=== PATIENT | female | born 1985 | race Hispanic/Latino ===

== ENCOUNTER 2017-08-30 08:56 | Inpatient (IN) | payer OTHER ==
[2017-08-30 09:12] VITALS: BMI 29.2
[2017-08-30] MEDS: Lactated Ringer's 1,000 ML IV SCH ×2 (10:25→11:27)
[2017-08-30 10:37] VITALS: RESP 20
[2017-08-30 11:07] LABS: BASO % 0.2 % (0.0-2.0); EOS % 0.3 % (0.0-4.0); HEMOGLOBIN 13.2 g/dL (12.0-16.0); LYMPH # 1.6 K/uL (1.0-4.3); LYMPH % 17.8 % (20.0-40.0); MEAN CELL VOLUME 92.8 fl (81.0-99.0); MEAN CORPUSCULAR HEMOGLOBIN 31.7 pg (27.0-31.0); MEAN CORPUSCULAR HGB CONC 34.1 g/dL (33.0-37.0); MEAN PLATELET VOLUME 10.1 fl (7.2-11.7); MONO # 0.7 K/uL (0.0-0.8); MONO % 7.4 % (0.0-10.0); NEUT # 6.8 K/uL (1.8-7.0); NEUT % 74.3 % (50.0-75.0); NRBC % 0.1 % (0.0-0.0); RBC 4.18 Mil/uL (3.80-5.20); RED CELL DISTRIBUTION WIDTH 13.3 % (11.5-14.5); WHITE BLOOD COUNT 9.2 K/uL (4.8-10.8)
--- NOTE | 2017-08-30 11:16 | OBHP ---
Datetime: 08/30/2017 10:54 IP Adm Impression: Postterm, intrauterine IP Admit Plan: Admit to unit; Initiate labor protocol Admit Comment, IP Provider: 31 yo G1 at 41 weeks w/ decreased movment and painful ctxns, in ea rly labor Pt admitted to L_D. IVF started. GBS negative. FHT reassuring and reactive. Will start piocin if ctxns become less frequest than every 3 minutes. Case discussed w/ Dr. Wayne. H_ P dictated, "[id number]" (ES) Extremities - PN: Normal Abdomen - PN: Normal Back - PN: Normal Lungs - PN: Normal Heart - PN: Normal Neurologic - PN: Normal General - PN: Normal FHR - Baseline A Provider: 130's Membranes, Provider: Intact Vital Signs Provider: Reviewed IP Chief Complaint: Uterine contractions; Decreased movement NICHD Variability Prov Fetus A: Moderate 6-25bpm NICHD Accel Fetus A IP Provider: [id number] FHR Category Provider Fetus A: Category I (Annotations: Data stored by CPN on behalf of user) NICHD Decel Fetus A IP Provider: None Dilatation, Provider: 3 Effacement, Provider: 90 Station, Provider: -1 Genitourinary Exam: Normal
--- NOTE | 2017-08-30 11:19 | OBADHP ---
Datetime: 08/30/2017 11:16 Admit Comment, IP Provider: 31 yo G1 at 41 weeks w/ decreased movment and painful ctxns, in ea rly labor Pt admitted to L_D. IVF started. GBS negative. FHT reassuring and reactive. Will start piocin if ctxns become less frequest than every 3 minutes. Case discussed w/ Dr. Wayne. H_ P dictated, "[id number]" (ES) Abdomen - PN: Normal Back - PN: Normal Lungs - PN: Normal Heart - PN: Normal Neurologic - PN: Normal General - PN: Normal FHR - Baseline A Provider: 130's Membranes, Provider: Intact Contraction Comments Provider: Q2-3 Vital Signs Provider: Reviewed; Within Normal Limits IP Chief Complaint: Uterine contractions; Decreased movement NICHD Variability Prov Fetus A: Moderate 6-25bpm NICHD Accel Fetus A IP Provider: [id number] FHR Category Provider Fetus A: Category I NICHD Decel Fetus A IP Provider: None Dilatation, Provider: 3 Effacement, Provider: 90 Station, Provider: -1 Genitourinary Exam: Normal IP Adm Impression: Postterm, intrauterine Datetime: 08/30/2017 10:54 Extremities - PN: Normal IP Admit Plan: Admit to unit; Initiate labor protocol
[2017-08-30] MEDS ORDERED: Lactated Ringer's 1,000 ML IV SCH (12:35)
--- NOTE | 2017-08-30 12:39 | HP ---
HISTORY OF PRESENT ILLNESS: This is a 31-year-old G1 at 41 weeks with an EDC of 08/23/2017 by last menstrual period consistent with 9 plus weeks' ultrasound who presents with complaint of decrease movement for several hours. She is also complaining of mild contraction that started at 8:00 a.m. Denies leaking of fluids or vaginal bleeding. Does reports that she feels a little bit of movement now. Patient reports that the contractions are becoming more painful now. Pt receives her care with [facility] with Dr. Wayne. Of note,the patient has had her TSH and thyroid hormone levels followed during the . PAST MEDICAL HISTORY: Healthy. PAST SURGICAL HISTORY: None. ALLERGIES: AMOXICILLIN CAUSES HIVES AND SHELLFISH CAUSES WHEEZING AND CRAMPS. MEDICATIONS: vitamins. SOCIAL HISTORY: The patient denied tobacco, alcohol or illicit drug use. GYNECOLOGIC HISTORY: Menarche at 11 years old with monthly periods. The patient has a history of an abnormal Pap around 2011, for which she had a colpo and then her Pap smears were normal for while and then she had an ASCUS Pap with positive HPV in 03/2016 and ASCUS Pap was positive HPV in 09/2016. The patient denies any sexually transmitted diseases. LABORATORY DATA: On 10/04/2016, blood type A positive and antibody screen negative. Gonorrhea and Chlamydia negative. On 01/16/2017, HIV nonreactive. Varicella zoster virus, IgG positive. Hemoglobin electrophoresis was normal. Urine culture was negative. RPR nonreactive. Rubella IgG positive. Hepatitis B surface antigen negative. [place] 4 carrier screen was negative for 4/4 diseases. On 02/14/2017, Panorama was low risk, female fetus. On 03/12/2017, maternal serum AFP was negative. On 07/25/2017, group B Strep culture was negative. PHYSICAL EXAMINATION: VITAL SIGNS: Afebrile and vital signs are stable. GENERAL: The patient appears uncomfortable during the contractions. HEART: Regular rate and rhythm. CHEST: Lungs are clear to auscultation bilaterally. ABDOMEN: Soft, nontender and gravid. EXTREMITIES: Nontender. No edema. PELVIC: On vaginal exam, a 3 cm, 90% effaced and -1 station at 10:15 a.m. External monitoring: Baseline is in the 130s with moderate variability and positive accelerations. Tocodynamometer; contractions every 2 to 3 minutes. ASSESSMENT AND PLAN: This is a 31-year-old G1 at 41 weeks who presented with complaint of decreased movement who is now in labor. Will start Pitocin if her contractions become less frequent than every 3 minutes. Intravenous fluids started. Epidural ordered as needed. Group B streptococcus negative. heart tracing is reassuring and reactive. This case was discussed with Dr. Wayne. Caren Patton MD MTDJessika
[2017-08-30] MEDS ORDERED: Bupivacaine HCl 0.25% PF (10 ml) Inj ONE (12:50)
[2017-08-30] MEDS ORDERED: Fentanyl/Bupivacaine HCl 125 ML EPI ONE (12:57)
[2017-08-30] MEDS ORDERED: Oxycodone/Acetaminophen 5/325 mg Tab PO PRN ×2 (18:45→21:39)
[2017-08-30] MEDS ORDERED: Benzocaine/Menthol SPRAY TOP PRN (18:45)
--- NOTE | 2017-08-30 18:58 | OBDS ---
MATERNAL INFORMATION Estimated Blood Loss (ml): 250 Maternal Complications: None Provider Comments: Delivered a living baby girl appears term cried spontaneously 9/9, AF clear placenta complete and intact Episiotomy repaired as above, uterus contracted well No cervical or vag inal or introital tears noted Rectal done no defects Tolerated procedure well No complications LABOR SUMMARY EDC: 08/23/2017 00:00 No. Babies in Womb: 1 Attempted: No Labor Anesthesia: Epidural LABOR INFORMATION Reason for Induction: Not Applicable Onset of Labor: 08/30/2017 12:55 Oxytocin: N/A Group B Beta Strep: Negative (Annotations: ) Antibiotics # of Doses: n/a Antibiotics Time of Last Dose: n/a Steroids Given: None Reason Steroids Not Administered: Not Applicable MEMBRANES Membranes Rupture Method: Artificial Rupture of Membranes: 08/30/2017 15:14 Amniotic Fluid Color: Clear Amniotic Fluid Amount: Moderate Amniotic Fluid Odor: Normal VAGINAL DELIVERY Episiotomy: Median Laceration Extension: N/A Laceration Type: None Laceration Repair: Not Applicable Laceration Repair Note: episiotomy 1st dg repaired using a 2-0 chromic suture without any complicati ons Sponge Count Correct: Yes Sharps Count Correct: Yes Count Comment: count correct and verified by RN CSECTION DELIVERY Primary Indication: N/A Secondary Indication: N/A CSection Incision: N/A Uterine Closure: N/A BABY A INFORMATION Born in Route : No : N/A Forceps: N/A Vacuum Extraction: N/A IDENTIFICATION/MEDS BABY A ID Band Number: [id number]
[2017-08-31] MEDS: Benzocaine/Menthol SPRAY TOP PRN ×2 (01:22→08:09)
[2017-08-31 07:32] LABS: HEMOGLOBIN 11.5 g/dL (12.0-16.0); MEAN CELL VOLUME 91.8 fl (81.0-99.0); MEAN CORPUSCULAR HEMOGLOBIN 32.4 pg (27.0-31.0); MEAN CORPUSCULAR HGB CONC 35.3 g/dL (33.0-37.0); RBC 3.54 Mil/uL (3.80-5.20); RED CELL DISTRIBUTION WIDTH 13.2 % (11.5-14.5)
--- NOTE | 2017-08-31 09:48 | OBPPN ---
Datetime: 08/31/2017 09:43 PP Pain Prov: Within normal limits PP Pain Prov comment: Denies SOB, chest or leg pains PP Nausea Prov: Denies PP Flatus Prov: Yes PP Nausea Prov comment: Denies C/F PP Flatus Prov comment: voiding well PP Breasts Prov: Normal PP Lungs Prov: Normal PP Abdomen/Uterus Prov: Abnormal PP Lochia Prov: Normal PP Vulva/Perineum Prov: Abnormal PP CVA Tenderness Prov: Normal PP Extremities Prov: Normal PP C/S Incision Prov: Not Applicable PP Progress Prov: Normal PP Comments Phys Exam Prov: breast not engorged NT, abd soft ND, fundus firm NT below the umb. Daniela neum repaired Ext no calf tenderness. PP Impression Prov: Normal progression PP Plan Prov: Continue present management PP Progress Note Prov: CBC stable Continue PP care and OOB and ambulation IP PP Procedures: None Vital Signs Provider PP: Reviewed
[2017-09-01] MEDS ORDERED: Lansinoh for Breast Feeding Mothers TP ONE (05:31)
--- NOTE | 2017-09-01 11:53 | OBPPN ---
Datetime: 09/01/2017 11:49 PP Pain Prov: Within normal limits PP Nausea Prov: Denies PP Flatus Prov: Yes PP BM Prov: Yes PP Breasts Prov: Normal PP Heart Prov: Normal PP Lungs Prov: Normal PP Abdomen/Uterus Prov: Normal PP Lochia Prov: Normal PP Vulva/Perineum Prov: Normal PP CVA Tenderness Prov: Normal PP Extremities Prov: Normal PP Progress Prov: Normal PP Impression Prov: Normal progression PP Plan Prov: Continue present management PP Progress Note Prov: stable ppd2 continue present care IP PP Procedures: None Vital Signs Provider PP: Reviewed; Within Normal Limits
--- NOTE | 2017-09-01 11:55 | OBDCSUM ---
Datetime: 09/01/2017 11:51 Discharged to, Provider: Home Follow up at, Provider: Disch Instr Diet: Regular Discharge Instructions, Provider: Routine instructions given Discharge Time: 09/01/2017 11:51 Follow up in weeks, Provider: 5-6 weeks Disch Referrals: None Discharge Comment, Provider: [facility] 5-6 weeks call office if any problems Datetime: 09/01/2017 09:25 Discharged to, Provider: Home Follow up at, Provider: Dr. Wayne Disch Instr Activity: Normal activity Disch Instr Diet: Regular Discharge Time: 09/01/2017 11:39 Follow up in weeks, Provider: 4-6 Weeks Disch Referrals: None Disch Activity Restrictions: No exercising; No lifting; No sexual activity; Nothing in vagina - Inte rcourse, tampons, douche
[2017-09-01 18:27] VITALS: BP 119/72; PULSE 72; TEMP 97.5; O2SAT 100
== END 2017-09-01 13:31 | disposition home or self-care (01) | DRG 774 ==
LOC: H.EROB2 08:56 → H.L&D 10:03 → H.OB/GYN 20:30
PROVIDERS: ADMIT Specialist; ATTEND Specialist
PROC: 10E0XZZ Delivery of Products of Conception, External Approach (ICD-10-PCS; principal; 2017-08-30)
PROC: 0W8NXZZ Division of Female Perineum, External Approach (ICD-10-PCS; 2017-08-30)
PROC: 4A1HXCZ Monitoring of Products of Conception, Cardiac Rate, External Approach (ICD-10-PCS; 2017-08-30)
DX: O36.8130 Decreased fetal movements, third trimester, not applicable or unspecified (principal); O98.52 Other viral diseases complicating childbirth; B02.9 Zoster without complications; O48.0 Post-term pregnancy; Z37.0 Single live birth; Z3A.41 41 weeks gestation of pregnancy